=== PATIENT | female | born 1940 | race African-American/Black ===

== ENCOUNTER 2024-07-10 12:11 | Observation (INO) ==
--- NOTE | 2024-07-10 12:27 | Emergency Department Note ---
HPI - General Adult General Chief complaint: General Complaint Stated complaint: HIGH BLOOD PRESSURE Time Seen by Provider: 07/10/24 12:17 Source: patient Mode of arrival: walk-in Limitations: no limitations History of Present Illness HPI narrative: This is a 84 year old female patient that presents to the ER with c/o her SBP around 224 over DBP 90 at home and was told to come here for evaluation. Patient has a hx of HTN. Patient denies any chest pain, SOB, back pain, abdominal pain, numbness, tingling, weakness or N/V/D. Patient states she took her BP medications this morning Onset (ago): hour(s) (2) Associated symptoms: Reports denies other symptoms Related Data Allergies Allergy/AdvReac Type Severity Reaction Status Date / Time No Known Drug Allergies Allergy Verified 07/10/24 12:22 Review of Systems Status of ROS 10 or more systems reviewed and unremark able except as noted in history and below Constitutional Denies: fever, chills, change in weight, fatigue or malaise Eyes Denies: change in vision, blurry vision, blind spots or light sensitivity Ears, nose, mouth, and throat Denies: throat pain, neck pain, throat swelling, difficulty swallowing, hoarseness or mouth pain Cardiovascular Denies: chest pain, palpitations, edema or swelling of feet/ankles Respiratory Denies: shortness of breath, cough, wheezing, stridor, pain on inspiration, change in phlegm color or coughing up blood Gastrointestinal Denies: abdominal pain, nausea, vomiting, coffee grounds in vomit, heartburn or diarrhea Genitourinary Denies: painful urination, urinary frequency, urinary urgency, urinary incontinence, blood in urine or difficulty voiding Musculoskeletal Denies: back pain, neck pain, extremity pain, extremity swelling, joint pain or limited range of motion Integumentary/Breast Denies: rash, itching, redness, skin pain, skin tenderness, skin swelling, sores or new lesion Neurological Denies: headache, numbness in extremities, weakness in extremities, lack of coordination, dizziness, vertigo, confusion, behavioral changes or slurred speech Psychiatric Denies: anxiety, mood swings, panic attacks, change in sleep pattern or hopelessness Endocrine Denies: excessive urination, excessive thirst, fatigue, cold intolerance or excessive sweating Hematologic/Lymphatic Denies: easy bruising, easy bleeding or enlarged lymph nodes Allergic/Immunologic Denies: hives, throat swelling, tongue swelling, facial sw elling, wheezing or itchy eyes [facility] Social History Smoking status: former smoker Within the past year, how often did you have a drink containing alcohol: never Score interpretation: A score less than 3 is consistent with normal alcohol consumption. Non-prescribed substance use: denies use Exam Constitutional: normal general appearance and no apparent distress Vital Signs - 24 hr 07/10/24 12:21 Temperature 98.1 F Pulse Rate 46 L Respiratory Rate 18 Blood Pressure 179/64 HENMT: normocephalic, head/scalp atraumatic, hearing grossly normal bilaterally, external ears normal, nasal mucous membranes normal, external nose normal, oral mucous membranes normal and oropharynx normal Eyes: PERRL, EOMs intact bilaterally, conjunctivae normal and no scleral icterus Neck/C-Spine: visual inspection normal and trachea midline Lymph: no lymphadenopathy noted Chest: inspection of chest normal Respiratory: breath sounds equal bilaterally, normal respiratory effort, clear to auscultation bilaterally, no wheezes, no rales, no retractions and no use of accessory muscles Cardiovascular: normal heart rate noted, regular rhythm noted, no gallop, no rub, no murmur, no JVD, no clicks, peripheral pulses 2+ throughout and no additional abnormal heart sounds Gastrointestinal: abdomen normal to inspection, abdomen soft to palpation, nontender to palpation, nontender to percussion, nondistended, normoactive bowel sounds, no hepatosplenomegaly, no masses, no pulsatile mass, no ascites and no hernia Genitourinary: no CVA tenderness Back/Pelvis: spine normal to inspection Extremities: normal to inspection, normal to palpation, no tenderness, full ROM, no joint enlargement and no deformity Neurology: selling underwriter II-XII intact, no movement abnormality noted, no focal motor deficit noted, no sensory deficits noted, gait normal, speech normal, coordination normal, no pronator drift noted, no fasciculations noted and GCS normal Psychiatry: mental status grossly normal, oriented x3, thought process normal, cooperative, affect normal, psychomotor activity normal and memory normal Skin: skin color normal Course Course Hospital Course: 1314:Due to low HR and ongoing HTN, will admit patient to the floor for further evaluation and treatment. No s/s of acute distress noted Reevaluation(s) Reevaluation #1: 1341: During patients admission will hold her beta tosha and adjust her BP medications to see if her HR will come up and we get better BP control for patient. Vital Signs Vital signs: Vital Signs Temperature 98.1 F 07/10/24 12:21 Pulse Rate 46 L 07/10/24 12:21 Respiratory Rate 18 07/10/24 12:21 Blood Pressure 179/64 07/10/24 12:21 Temperature 98.1 F 07/10/24 12:21 Pulse Rate 46 L 07/10/24 12:21 Respiratory Rate 18 07/10/24 12:21 Blood Pressure 179/64 07/10/24 12:21 Medical Decision Making Differential Diagnosis Differential Diagnosis: viral illness Medical Records Medical records reviewed: Yes I reviewed the patient's medical records Lab Data Lab results reviewed: Yes I reviewed the patient's lab results Labs: Lab Results 07/10/24 Range/Units 12:45 WBC 10.1 H (4.3-9.3) K/uL RBC 4.0 (4.00-5.50) M/uL Hgb 11.7 L (12.5-15.8) gm/dL Hct 35.7 L (35.9-46.7) % MCV 90.1 (81.0-93.7) fl MCH 29.5 (27.6-32.2) pg MCHC 32.7 L (33.1-35.3) g/dl RDW 14.7 H (11.4-14.2) % Plt Count 352 (152-353) K/uL MPV 7.3 (6.9-10.8) fl Gran % 79.8 H (47.8-71.3) % Lymph % (Auto) 15.2 L (20.0-43.0) % [place] % (Auto) 3.7 (3.6-9.8) % Eos % (Auto) 0.6 (0.4-2.8) % Baso % (Auto) 0.7 (0.1-0.85) Lymph # (Auto) 1.5 (1.1-3.1) [place] # (Auto) 0.4 L (1.1-3.1) Eos # (Auto) 0.1 (0.0-0.2) Baso # (Auto) 0.1 (0.0-0.1) Absolute Gran (auto) 8.0 H (2.3-6.0) Sodium 143 (136-145) mmol/L Potassium 3.7 (3.6-5.2) mmol/L Chloride 106.0 (98-107) mmol/L Carbon Dioxide 30 (21-32) mmol/L Anion Gap 7.0 (4-14) mEq/L BUN 18 (7-18) mg/dL Creatinine 1.0 (0.6-1.3) mg/dL Estimated GFR 55.6 (>59.9) Glucose 140 H (70-110) mg/dL Calcium 9.0 (8.5-10.1) mg/dL Total Bilirubin 0.55 (0.0-1.0) mg/dL AST 13 L (15-37) U/L ALT 10 L (30-65) U/L Alkaline Phosphatase 75 (50-136) U/L Troponin I High Sens 10.60 (4.0-60.4) ng/L Total Protein 6.5 (6.4-8.2) g/dL Albumin 3.1 L (3.4-5.0) g/dL Urine Color Ana (STRAW/YELL.) Urine Appearance Hazy (CLEAR) Ur Specific [place] 1.030 (1.001-1.035) Urine Protein 1+ (NEGATIVE) Urine Glucose (UA) Normal (NORMAL) Urine Ketones Negative (NEGATIVE) Urine Occult Blood Negative (NEG - TRACE) Urine Nitrite Negative (NEGATIVE) Urine Bilirubin 1+ (NEGATIVE) Urine Urobilinogen Normal (NORMAL) Ur Leukocyte Esterase Negative (NEGATIVE) Fluid pH 6.0 (5 - 9) Imaging Data Chest x-ray: Attestation: I have reviewed the pertinent imaging results. ECG Data Attestation: I have reviewed the pertinent ECG results. Discharge Plan Discharge Patient Disposition: Admitted As Observation Condition: Stable Clinical Impression: Bradycardia, Benign essential HTN Time of Disposition: 13:16
[2024-07-10 12:50] LABS: Basophils #(Absolute) Auto 0.1 (0.0-0.1); Basophils%(Percent) Auto 0.7 (0.1-0.85); Eosinophils#(Absolute)Auto 0.1 (0.0-0.2); Eosinophils%(Percent) Auto 0.6 % (0.4-2.8); Granulocytes % - Auto 79.8 % (47.8-71.3); Hematocrit 35.7 % (35.9-46.7); Mean Corpuscular Volume 90.1 fl (81.0-93.7); Monocytes #(Absolute)- Auto 0.4 (1.1-3.1); Monocytes %(Percent)- Auto 3.7 % (3.6-9.8); Platelet Count 352 K/uL (152-353); White Blood Count 10.1 K/uL (4.3-9.3)
[2024-07-10 13:05] LABS: Potassium 3.7 mmol/L (3.6-5.2)
[2024-07-10 13:12] LABS: Urine Color AMBER (STRAW/YELL.)
[2024-07-10 13:13] LABS: Urine Appearance HAZY (CLEAR); Urine Blood NEGATIVE (NEG - TRACE); Urine Urobilinogen Normal (NORMAL)
[2024-07-10] MEDS ORDERED: bisacodyL 10 MG SUPP.RECT PR PRN (14:20)
[2024-07-10] MEDS: ACETAMINOPHEN 500 MG TABLET PO PRN (18:40)
[2024-07-11 05:34] LABS: Basophils #(Absolute) Auto 0.1 (0.0-0.1); Basophils%(Percent) Auto 0.6 (0.1-0.85); Eosinophils#(Absolute)Auto 0.1 (0.0-0.2); Eosinophils%(Percent) Auto 1.5 % (0.4-2.8); Granulocytes % - Auto 67.8 % (47.8-71.3); Granulocytes#(Absolute)- Auto 6.7 (2.3-6.0); Hematocrit 32.8 % (35.9-46.7); Mean Corpuscular Volume 89.5 fl (81.0-93.7); Monocytes #(Absolute)- Auto 0.6 (1.1-3.1); Monocytes %(Percent)- Auto 6.2 % (3.6-9.8); Platelet Count 317 K/uL (152-353); White Blood Count 9.9 K/uL (4.3-9.3)
[2024-07-11 06:09] LABS: Potassium 3.5 mmol/L (3.6-5.2)
[2024-07-11] MEDS: HYDRALAZINE HCL 20 MG/ML VIAL IVP ONE (11:01)
[2024-07-11] MEDS: AMLODIPINE BESYLATE 5 MG TABLET PO SCH (11:02)
[2024-07-11] MEDS: LOSARTAN POTASSIUM 50 MG TABLET PO SCH (11:03)
--- NOTE | 2024-07-11 12:17 | History & Physical Report ---
H&P: HPI History of Present Illness Chief complaint: BRADYCARDIA,HTN Narrative: This is a 84 year old female patient that presented to the ER on yesterday (07/10/24) with c/o her SBP around 224 over DBP 90 at home and was told to come here for evaluation. Patient denied any chest pain, SOB, back pain, abdominal pain, numbness, tingling, weakness or N/V/D. Her known past medical history includes hypertension, hyperlipidemia, and dementia. Her ER eval revealed continued bradycardia and hypertension. She was admitted for further evaluation and treatment. Review of Systems Status of ROS 10 or more systems reviewed and unremark able except as noted in history and below Constitutional Denies: fever, chills, change in weight, fatigue or malaise Eyes Denies: change in vision, blurry vision, blind spots or light sensitivity Ears, nose, mouth, and throat Denies: throat pain, neck pain, throat swelling, difficulty swallowing, hoarseness, mouth pain or vertigo Cardiovascular Denies: chest pain, palpitations, edema, swelling of feet/ankles or shortness of breath with exertion Respiratory Denies: shortness of breath, cough, wheezing, stridor, pain on inspiration, change in phlegm color or coughing up blood Gastrointestinal Denies: abdominal pain, nausea, vomiting, coffee grounds in vomit, heartburn, diarrhea or difficulty swallowing Genitourinary Denies: painful urination, urinary frequency, urinary urgency, urinary incontinence, blood in urine or difficulty voiding Musculoskeletal Denies: back pain, neck pain, extremity pain, extremity swelling, joint pain or limited range of motion Integumentary/Breast Denies: rash, itching, redness, skin pain, skin tenderness, skin swelling, sores or new lesion Neurological Denies: headache, numbness in extremities, weakness in extremities, lack of coordination, dizziness, vertigo, confusion, behavioral changes or slurred speech Psychiatric Denies: anxiety, mood swings, panic attacks, change in sleep pattern or hopelessness Endocrine Denies: excessive urination, excessive thirst, fatigue, cold intolerance or excessive sweating Hematologic/Lymphatic Denies: easy bruising, easy bleeding or enlarged lymph nodes Allergic/Immunologic Denies: hives, throat swelling, tongue swelling, facial swelling, wheezing or itchy eyes [facility] Medical History (Updated 07/11/24 @ 15:11 by Marti Velasquez DO) Dementia Mixed hyperlipidemia Hypertension Social History Smoking status: former smoker Within the past year, how often did you have a drink containing alcohol: never Score interpretation: A score less than 3 is consistent with normal alcohol consumption. Non-prescribed substance use: denies use Problems where you live: no known problems Highest level of school completed/degree received: high school Meds Home Medications and Allergies Home Medications Medication Instructions Recorded Confirmed Type donepezil 5 mg tablet 5 mg PO BEDTIME 07/11/24 07/11/24 History gabapentin 100 mg capsule 100 mg PO QID 07/11/24 07/11/24 History meloxicam 7.5 mg tablet 7.5 mg PO DAILY 07/11/24 07/11/24 History metoprolol tartrate 50 mg tablet 50 mg PO BID 07/11/24 07/11/24 History pravastatin 20 mg tablet 20 mg PO DAILY 07/11/24 07/11/24 History tramadol 50 mg tablet 50 mg PO BID PRN pain 07/11/24 07/11/24 History Allergies Allergy/AdvReac Type Severity Reaction Status Date / Time No Known Drug Allergies Allergy Verified 07/10/24 12:22 Exam Constitutional: normal general appearance, no apparent distress, average body habitus, limitations noted (physical limitations) and alert Vital Signs - 24 hr 07/10/24 12:21 07/10/24 13:05 07/10/24 13:31 Temperature 98.1 F Pulse Rate 46 L 42 L 41 L Pulse Rate [Right Radial] Respiratory Rate 18 16 18 Blood Pressure 179/64 182/73 161/57 Blood Pressure [Ri ght Arm] Pulse Oximetry 98 98 Oxygen Delivery Me thod Room Air Room Air 07/10/24 14:03 07/10/24 14:24 07/10/24 16:00 Temperature 98.1 F 98.1 F Pulse Rate 42 L Pulse Rate [Right Radial] 43 L 43 L Respiratory Rate 18 16 17 Blood Pressure 135/96 Blood Pressure [Ri ght Arm] 158/59 Pulse Oximetry 98 99 Oxygen Delivery Me thod Room Air Room Air 07/10/24 20:00 07/10/24 23:46 07/11/24 04:00 Temperature 98.2 F 97.9 F 98.1 F Pulse Rate Pulse Rate [Right Radial] 40 L 42 L 39 L Respiratory Rate 16 16 15 Blood Pressure Blood Pressure [Ri ght Arm] 153/51 143/53 110/60 Pulse Oximetry 99 100 98 Oxygen Delivery Me thod Room Air Room Air Room Air 07/11/24 08:00 Temperature 98.2 F Pulse Rate Pulse Rate [Right Radial] 51 L Respiratory Rate 16 Blood Pressure Blood Pressure [Ri ght Arm] 209/77 Pulse Oximetry Oxygen Delivery Me thod Room Air HENMT: normocephalic, head/scalp atraumatic, hearing grossly normal bilaterally, external ears normal, nasal mucous membranes normal, external nose normal, oral mucous membranes normal and oropharynx normal Eyes: PERRL, EOMs intact bilaterally, conjunctivae normal and no scleral icterus Neck/C-Spine: visual inspection normal and trachea midline Lymph: no lymphadenopathy noted Chest: inspection of chest normal Respiratory: breath sounds equal bilaterally, normal respiratory effort, clear to auscultation bilaterally, no wheezes, no rales, no retractions and no use of accessory muscles Cardiovascular: heart rate abnormal (bradycardic), regular rhythm noted, no gallop, no rub, no murmur, no JVD, no clicks, peripheral pulses 2+ throughout and no additional abnormal heart sounds Gastrointestinal: abdomen normal to inspection, abdomen soft to palpation, nontender to palpation, nontender to percussion, nondistended, normoactive bowel sounds, no masses, no pulsatile mass and no ascites Genitourinary: no CVA tenderness Back/Pelvis: spine normal to inspection and no lumbar spine tenderness Extremities: normal to inspection, normal to palpation, no tenderness, full ROM, no joint enlargement and no deformity Neurology: mirror inspector II-XII intact, no movement abnormality noted, no focal motor deficit noted, no sensory deficits noted, gait normal, speech normal, coordination normal, no pronator drift noted, no fasciculations noted and GCS normal Psychiatry: mental status grossly normal, oriented x3, thought process normal, cooperative, affect normal, psychomotor activity normal and memory normal Skin: skin color normal, no wounds, no jaundice, no petechiae and no mottling Assessment and Plan Assessment and Plan (1) Hypertension: Assessment and Plan: Hydralazine 5 mg slow IV push x 1 dose now Losartan 50 mg p.o. daily Amlodipine 2.5 mg p.o. daily Vital signs per protocol nurse monitoring continuous STOP metoprolol CBC, CMP daily EKG daily Serial cardiac enzymes and EKGs Qualifiers: Hypertension type: primary hypertension Qualified Code(s): I10 - Essential (primary) hypertension Code(s): I10 - Essential (primary) hypertension (2) Bradycardia: Assessment and Plan: nurse monitoring continuous Stop metoprolol Vital signs per protocol Daily EKG Losartan 50 mg p.o. daily Amlodipine 2.5 mg p.o. daily Vital signs per protocol nurse monitoring continuous STOP metoprolol CBC, CMP daily EKG daily Serial cardiac enzymes and EKGs Code(s): R00.1 - Bradycardia, unspecified (3) Junctional rhythm: Assessment and Plan: EKG reveals Junctional rhythm Bradycardiac and asymptomatic Stopping Metoprolol BP control with one time dose hydralazine 5 mg SIVP Losartan 50 mg po daily Amlodipine 2.5 mg po daily Continuous monitoring analyst Echocardiogram Cardiac consult Code(s): I49.8 - Other specified cardiac arrhythmias (4) Atrial fibrillation with slow ventricular response: Assessment and Plan: EKG performed at 1346 shows change Now A Fib with slow ventricular response Consulted with Dr. Prieto- Cardiology production superintendent at [employer] @[phone]- agrees with read and no complete heart block- patient stable at this time Starting Eliquis 2.5 mg po BID Code(s): I48.91 - Unspecified atrial fibrillation (5) Dementia: Assessment and Plan: Continue home medication of donepezil 5 mg p.o. at bedtime Qualifiers: Alzheimer's disease onset: unspecified onset Dementia behavioral or psychological symptom: without behavioral, psychotic, or mood disturbance or anxiety Dementia severity: mild Dementia type: Alzheimer's Qualified Code(s): G30.9 - Alzheimer's disease, unspecified; F02.A0 - Dementia in other diseases classified elsewhere, mild, without behavioral disturbance, psychotic disturbance, mood disturbance, and anxiety Code(s): F03.90 - Unspecified dementia, unspecified severity, without behavioral disturbance, psychotic disturbance, mood disturbance, and anxiety (6) Mixed hyperlipidemia: Assessment and Plan: Continue home medication of pravastatin 20 mg p.o. nightly Cardiac diet Code(s): E78.2 - Mixed hyperlipidemia (7) Chronic kidney disease: Assessment and Plan: Losartan 50 mg p.o. daily Amlodipine 2.5 mg p.o. daily Vital signs per protocol nurse monitoring continuous CBC, CMP daily Qualifiers: Chronic kidney disease stage: stage 2 (GFR 60-89) Qualified Code(s): N18.2 - Chronic kidney disease, stage 2 (mild) Code(s): N18.9 - Chronic kidney disease, unspecified Plan Admit for further eval and treatment to include but not limited to blood pressure control and continuous cardiac monitoring, Serial cardiac enzymes and EKGs, Cardiac consult, echocardiogram. Results Labs Labs: CBC WBC 9.9 K/uL (4.3-9.3) H 07/11/24 05:25 RBC 3.7 M/uL (4.00-5.50) L 07/11/24 05:25 Hgb 10.9 gm/dL (12.5-15.8) L 07/11/24 05:25 Hct 32.8 % (35.9-46.7) L 07/11/24 05:25 MCV 89.5 fl (81.0-93.7) 07/11/24 05:25 MCH 29.8 pg (27.6-32.2) 07/11/24 05:25 MCHC 33.2 g/dl (33.1-35.3) 07/11/24 05:25 RDW 14.9 % (11.4-14.2) H 07/11/24 05:25 Plt Count 317 K/uL (152-353) 07/11/24 05:25 MPV 7.5 fl (6.9-10.8) 07/11/24 05:25 Gran % 67.8 % (47.8-71.3) 07/11/24 05:25 Lymph % (Auto) 23.9 % (20.0-43.0) 07/11/24 05:25 [place] % (Auto) 6.2 % (3.6-9.8) 07/11/24 05:25 Eos % (Auto) 1.5 % (0.4-2.8) 07/11/24 05:25 Baso % (Auto) 0.6 (0.1-0.85) 07/11/24 05:25 Lymph # (Auto) 2.4 (1.1-3.1) 07/11/24 05:25 [place] # (Auto) 0.6 (1.1-3.1) L 07/11/24 05:25 Eos # (Auto) 0.1 (0.0-0.2) 07/11/24 05:25 Baso # (Auto) 0.1 (0.0-0.1) 07/11/24 05:25 Absolute Gran (auto) 6.7 (2.3-6.0) H 07/11/24 05:25 BMP Sodium 143 mmol/L (136-145) 07/11/24 05:25 Potassium 3.5 mmol/L (3.6-5.2) L 07/11/24 05:25 Chloride 108.0 mmol/L (98-107) H 07/11/24 05:25 Carbon Dioxide 30 mmol/L (21-32) 07/11/24 05:25 Anion Gap 5.0 mEq/L (4-14) 07/11/24 05:25 BUN 19 mg/dL (7-18) H 07/11/24 05:25 Creatinine 1.0 mg/dL (0.6-1.3) 07/11/24 05:25 Estimated GFR 55.6 (>59.9) 07/11/24 05:25 Glucose 87 mg/dL (70-110) 07/11/24 05:25 Calcium 8.7 mg/dL (8.5-10.1) 07/11/24 05:25 Total Bilirubin 0.42 mg/dL (0.0-1.0) 07/11/24 05:25 AST 15 U/L (15-37) 07/11/24 05:25 ALT 11 U/L (30-65) L 07/11/24 05:25 Alkaline Phosphatase 65 U/L (50-136) 07/11/24 05:25 Total Protein 5.8 g/dL (6.4-8.2) L 07/11/24 05:25 Albumin 2.7 g/dL (3.4-5.0) L 07/11/24 05:25 Cardiac Enzymes Troponin I High Sens 10.60 ng/L (4.0-60.4) 07/10/24 12:45 Liver Function Total Bilirubin 0.42 mg/dL (0.0-1.0) 07/11/24 05:25 AST 15 U/L (15-37) 07/11/24 05:25 ALT 11 U/L (30-65) L 07/11/24 05:25 Alkaline Phosphatase 65 U/L (50-136) 07/11/24 05:25 Total Protein 5.8 g/dL (6.4-8.2) L 07/11/24 05:25 Albumin 2.7 g/dL (3.4-5.0) L 07/11/24 05:25 Urine Urine Color Ana (STRAW/YELL.) 07/10/24 12:45 Urine Appearance Hazy (CLEAR) 07/10/24 12:45 Ur Specific [place] 1.030 (1.001-1.035) 07/10/24 12:45 Urine Protein 1+ (NEGATIVE) 07/10/24 12:45 Urine Glucose (UA) Normal (NORMAL) 07/10/24 12:45 Urine Ketones Negative (NEGATIVE) 07/10/24 12:45 Urine Occult Blood Negative (NEG - TRACE) 07/10/24 12:45 Urine Nitrite Negative (NEGATIVE) 07/10/24 12:45 Urine Bilirubin 1+ (NEGATIVE) 07/10/24 12:45 Urine Urobilinogen Normal (NORMAL) 07/10/24 12:45 Ur Leukocyte Esterase Negative (NEGATIVE) 07/10/24 12:45 Pulse Oximetry SpO2 results: 98% RA Attestation: I have reviewed the pertinent pulse oximetry results. ECG Attestation: I have reviewed the pertinent ECG results. ECG interpretation date: 07/10/24 Interpretation: Junctional rhythm Bradycardia Imaging Imaging ordered: Chest x-ray Attestation: I have reviewed the pertinent imaging results. Radiologist's impression: EXAM: XR CHEST 1V HISTORY: painpain; COMPARISON: July 07, 2024 FINDINGS: The trachea is midline. The cardiac silhouette is mildly enlarged. The lungs are clear without focal infiltrate or effusion. The bony thorax is unremarkable. IMPRESSION: No acute cardiopulmonary disease. THIS IS AN ELECTRONICALLY VERIFIED FINAL REPORT 07/10/2024 1:14 PM - Electronically signed by Silas Murray MD
[2024-07-11] MEDS ORDERED: TRAMADOL HCL 50 MG TABLET PO PRN (12:39)
[2024-07-11] MEDS: GABAPENTIN 100 MG CAPSULE PO SCH (13:42)
[2024-07-11] MEDS: MELOXICAM 7.5 MG TABLET PO SCH (13:56)
[2024-07-11] MEDS: AMLODIPINE BESYLATE 5 MG TABLET PO ONE (17:08)
[2024-07-11] MEDS ORDERED: PRAVASTATIN 20 MG PO SCH (20:00)
[2024-07-12 05:17] LABS: Basophils%(Percent) Auto 0.3 (0.1-0.85); Eosinophils#(Absolute)Auto 0.2 (0.0-0.2); Eosinophils%(Percent) Auto 1.4 % (0.4-2.8); Granulocytes % - Auto 68.4 % (47.8-71.3); Granulocytes#(Absolute)- Auto 7.4 (2.3-6.0); Hematocrit 34.5 % (35.9-46.7); Mean Corpuscular Volume 89.2 fl (81.0-93.7); Monocytes #(Absolute)- Auto 0.6 (1.1-3.1); Monocytes %(Percent)- Auto 5.9 % (3.6-9.8); Platelet Count 329 K/uL (152-353); White Blood Count 10.9 K/uL (4.3-9.3)
[2024-07-12 05:33] LABS: Potassium 3.4 mmol/L (3.6-5.2)
[2024-07-12] MEDS: DONEPEZIL HCL 5 MG TABLET PO SCH (06:08)
[2024-07-12] MEDS: SIMVASTATIN 10 MG TABLET PO SCH (06:08)
[2024-07-12] MEDS: APIXABAN 2.5 MG TABLET PO SCH (06:08)
--- NOTE | 2024-07-12 07:26 | Progress Note ---
Progress Note: Subjective Subjective Interval history: Hospital course has remained uneventful. Patient has rested well through the night. Her blood pressure has responded to treatment and now 152/65. Heart rate continues from 40s- low 50s and patient cotninues to be asymptomatic. EKG Afib with slow ventricular response. [facility] [employer] at [facility] Dr. Prieto was consulted. She was started on Eliquis 2.5 mg po BID. Family would like her to see Dr. Henning in [facility] for [facility]iology. Exam Exam: Patient resting in SF position asleep. Arouses easily when name is called. Alert and oriented. Pleasantly communicative. X-ray in to take her down for CXR via wc. Constitutional: normal general appearance, no apparent distress, average body habitus, limitations noted (physical limitations) and alert Vital Signs - 24 hr 07/11/24 08:00 07/11/24 11:45 07/11/24 12:00 Temperature 98.2 F 98.6 F Pulse Rate [Right Radial] 51 L 45 L Respiratory Rate 16 16 Blood Pressure 138/57 Blood Pressure [Ri ght Arm] 209/77 138/57 Pulse Oximetry 99 Oxygen Delivery Me thod Room Air Room Air 07/11/24 16:00 07/11/24 17:08 07/11/24 19:38 Temperature 98.4 F 98.5 F Pulse Rate [Right Radial] 46 L 53 L Respiratory Rate 16 17 Blood Pressure 205/78 Blood Pressure [Ri ght Arm] 196/81 140/53 Pulse Oximetry 99 98 Oxygen Delivery Me thod Room Air Room Air 07/11/24 23:19 07/12/24 03:27 07/12/24 07:14 Temperature 97.7 F 97.9 F 97.6 F Pulse Rate [Right Radial] 47 L 53 L 43 L Respiratory Rate 16 18 16 Blood Pressure Blood Pressure [Ri ght Arm] 155/71 158/77 152/65 Pulse Oximetry 99 99 99 Oxygen Delivery Me thod Room Air Room Air Room Air HENMT: normocephalic, head/scalp atraumatic, hearing grossly normal bilaterally, external ears normal, nasal mucous membranes normal, external nose normal, oral mucous membranes normal and oropharynx normal Eyes: PERRL, EOMs intact bilaterally, conjunctivae normal and no scleral icterus Neck/C-Spine: visual inspection normal and trachea midline Lymph: no lymphadenopathy noted Chest: inspection of chest normal Respiratory: breath sounds equal bilaterally, normal respiratory effort, clear to auscultation bilaterally, no wheezes, no rales, no retractions and no use of accessory muscles Cardiovascular: heart rate abnormal (bradycardic), regular rhythm noted, no gallop, no rub, no murmur, no JVD, no clicks, peripheral pulses 2+ throughout and no additional abnormal heart sounds Gastrointestinal: abdomen normal to inspection, abdomen soft to palpation, nontender to palpation, nontender to percussion, nondistended, normoactive bowel sounds, no hepatosplenomegaly, no masses, no pulsatile mass, no ascites and no hernia Genitourinary: no CVA tenderness Back/Pelvis: spine normal to inspection and no lumbar spine tenderness Extremities: normal to inspection, normal to palpation, no tenderness, full ROM, no joint enlargement and no deformity Neurology: dermatology nurse practitioner II-XII intact, no movement abnormality noted, no focal motor deficit noted, no sensory deficits noted, gait normal, speech normal, coordination normal, no pronator drift noted, no fasciculations noted and GCS normal Psychiatry: mental status grossly normal, oriented x3, thought process normal, cooperative, affect normal, psychomotor activity normal and memory normal Skin: skin color normal, no wounds, no jaundice, no petechiae and no mottling Progress Note: Objective Labs Labs: CBC WBC 10.9 K/uL (4.3-9.3) H 07/12/24 05:10 RBC 3.9 M/uL (4.00-5.50) L 07/12/24 05:10 Hgb 11.6 gm/dL (12.5-15.8) L 07/12/24 05:10 Hct 34.5 % (35.9-46.7) L 07/12/24 05:10 MCV 89.2 fl (81.0-93.7) 07/12/24 05:10 MCH 29.9 pg (27.6-32.2) 07/12/24 05:10 MCHC 33.6 g/dl (33.1-35.3) 07/12/24 05:10 RDW 15.1 % (11.4-14.2) H 07/12/24 05:10 Plt Count 329 K/uL (152-353) 07/12/24 05:10 MPV 7.3 fl (6.9-10.8) 07/12/24 05:10 Gran % 68.4 % (47.8-71.3) 07/12/24 05:10 Lymph % (Auto) 24.0 % (20.0-43.0) 07/12/24 05:10 [place] % (Auto) 5.9 % (3.6-9.8) 07/12/24 05:10 Eos % (Auto) 1.4 % (0.4-2.8) 07/12/24 05:10 Baso % (Auto) 0.3 (0.1-0.85) 07/12/24 05:10 Lymph # (Auto) 2.6 (1.1-3.1) 07/12/24 05:10 [place] # (Auto) 0.6 (1.1-3.1) L 07/12/24 05:10 Eos # (Auto) 0.2 (0.0-0.2) 07/12/24 05:10 Baso # (Auto) 0.0 (0.0-0.1) 07/12/24 05:10 Absolute Gran (auto) 7.4 (2.3-6.0) H 07/12/24 05:10 BMP Sodium 144 mmol/L (136-145) 07/12/24 05:10 Potassium 3.4 mmol/L (3.6-5.2) L 07/12/24 05:10 Chloride 107.0 mmol/L (98-107) 07/12/24 05:10 Carbon Dioxide 31 mmol/L (21-32) 07/12/24 05:10 Anion Gap 6.0 mEq/L (4-14) 07/12/24 05:10 BUN 14 mg/dL (7-18) 07/12/24 05:10 Creatinine 0.8 mg/dL (0.6-1.3) 07/12/24 05:10 Estimated GFR 72.6 (>59.9) 07/12/24 05:10 Glucose 114 mg/dL (70-110) H 07/12/24 05:10 Calcium 8.8 mg/dL (8.5-10.1) 07/12/24 05:10 Total Bilirubin 0.44 mg/dL (0.0-1.0) 07/12/24 05:10 AST 16 U/L (15-37) 07/12/24 05:10 ALT 9 U/L (30-65) L 07/12/24 05:10 Alkaline Phosphatase 72 U/L (50-136) 07/12/24 05:10 Total Protein 6.3 g/dL (6.4-8.2) L 07/12/24 05:10 Albumin 2.9 g/dL (3.4-5.0) L 07/12/24 05:10 Cardiac Enzymes Troponin I High Sens 10.60 ng/L (4.0-60.4) 07/10/24 12:45 Liver Function Total Bilirubin 0.44 mg/dL (0.0-1.0) 07/12/24 05:10 AST 16 U/L (15-37) 07/12/24 05:10 ALT 9 U/L (30-65) L 07/12/24 05:10 Alkaline Phosphatase 72 U/L (50-136) 07/12/24 05:10 Total Protein 6.3 g/dL (6.4-8.2) L 07/12/24 05:10 Albumin 2.9 g/dL (3.4-5.0) L 07/12/24 05:10 Urine Urine Color Ana (STRAW/YELL.) 07/10/24 12:45 Urine Appearance Hazy (CLEAR) 07/10/24 12:45 Ur Specific [place] 1.030 (1.001-1.035) 07/10/24 12:45 Urine Protein 1+ (NEGATIVE) 07/10/24 12:45 Urine Glucose (UA) Normal (NORMAL) 07/10/24 12:45 Urine Ketones Negative (NEGATIVE) 07/10/24 12:45 Urine Occult Blood Negative (NEG - TRACE) 07/10/24 12:45 Urine Nitrite Negative (NEGATIVE) 07/10/24 12:45 Urine Bilirubin 1+ (NEGATIVE) 07/10/24 12:45 Urine Urobilinogen Normal (NORMAL) 07/10/24 12:45 Ur Leukocyte Esterase Negative (NEGATIVE) 07/10/24 12:45 Pulse Oximetry SpO2 results: 99% RA Attestation: I have reviewed the pertinent pulse oximetry results. ECG Attestation: I have reviewed the pertinent ECG results. ECG interpretation date: 07/12/24 ECG interpretation time: 05:59 Prior ECG tracings: available for review Interpretation: Rate 48 Afib with slow ventricular response prolonged QT interval Progress Note: A&P Assessment and Plan (1) Hypertension: Assessment and Plan: Losartan 50 mg p.o. daily Amlodipine 5 mg p.o. daily Vital signs per protocol telemetry monitor continuous STOP metoprolol CBC, CMP daily EKG daily Cardiac CRP Qualifiers: Hypertension type: primary hypertension Qualified Code(s): I10 - Essential (primary) hypertension (2) Bradycardia: Assessment and Plan: telemetry monitor continuous Losartan 50 mg p.o. daily Amlodipine 5 mg p.o. daily Vital signs per protocol telemetry monitor continuous STOP metoprolol CBC, CMP daily EKG daily Cardiac CRP (3) Junctional rhythm: Assessment and Plan: EKG reveals Junctional rhythm Bradycardiac and asymptomatic Losartan 50 mg p.o. daily Amlodipine 5 mg p.o. daily Vital signs per protocol telemetry monitor continuous STOP metoprolol CBC, CMP daily EKG daily Cardiac CRP Echocardiogram Cardiac consult (4) Atrial fibrillation with slow ventricular response: Assessment and Plan: EKG performed 07/11/24 at 1346 shows change Now A Fib with slow ventricular response Consulted with Dr. Prieto- Cardiology ironmolder at [facility] @[id number]- agrees with read and no complete heart block- patient stable at this time Starting Eliquis 2.5 mg po BID Cardiac CRP (5) Dementia: Assessment and Plan: Continue home medication of donepezil 5 mg p.o. at bedtime Qualifiers: Alzheimer's disease onset: unspecified onset Dementia behavioral or psychological symptom: without behavioral, psychotic, or mood disturbance or anxiety Dementia severity: mild Dementia type: Alzheimer's Qualified Code(s): G30.9 - Alzheimer's disease, unspecified; F02.A0 - Dementia in other diseases classified elsewhere, mild, without behavioral disturbance, psychotic disturbance, mood disturbance, and anxiety (6) Mixed hyperlipidemia: Assessment and Plan: Continue home medication of pravastatin 20 mg p.o. nightly Cardiac diet Cardiac CRP (7) Chronic kidney disease: Assessment and Plan: Losartan 50 mg p.o. daily Amlodipine 5 mg p.o. daily Vital signs per protocol telemetry monitor continuous CBC, CMP daily Monitor intake and output. This mornings eGFR improved and at 72 microalbumin- urine Qualifiers: Chronic kidney disease stage: stage 2 (GFR 60-89) Qualified Code(s): N18.2 - Chronic kidney disease, stage 2 (mild) Plan Continue evaluation and treatment including blood pressure control and continuous cardiac monitoring, Serial cardiac enzymes and EKGs, Cardiac consult, echocardiogram. Fall Risk Details Marin Fall Scale Risk Level: Moderate Fall Risk Current Medications: Current Medications Acetaminophen (Acetaminophen 500 Mg Tablet) 500 mg PO Q6H PRN PRN Reason: MILD PAIN SCALE 1-4 Last Admin: 07/11/24 03:53 Dose: 500 mg Amlodipine Besylate (Amlodipine Besylate 5 Mg Tablet) 5 mg PO DAILY [facility] Apixaban (Apixaban 2.5 Mg Tablet) 2.5 mg PO BID [facility] Last Admin: 07/12/24 06:08 Dose: Not Given Bisacodyl (Bisacodyl 10 Mg Supp.Rect) 10 mg [place] DAILY PRN PRN Reason: Constipation Donepezil HCl (Donepezil Hcl 5 Mg Tablet) 5 mg PO BEDTIME [facility] Last Admin: 07/12/24 06:08 Dose: Not Given Gabapentin (Gabapentin 100 Mg Capsule) 100 mg PO QID [facility] Last Admin: 07/12/24 06:08 Dose: Not Given Losartan Potassium (Losartan Potassium 50 Mg Tablet) 50 mg PO DAILY [facility] Last Admin: 07/11/24 11:03 Dose: 50 mg Simvastatin (Simvastatin 10 Mg Tablet) 10 mg PO BEDTIME [facility] Last Admin: 07/12/24 06:08 Dose: Not Given Tramadol HCl (Tramadol Hcl 50 Mg Tablet) 50 mg PO BID PRN PRN Reason: pain Time Spent With Patient Time: Total time spent is greater than 50% in coordination of care (as documented) at patient's floor/unit and/or counseling patient: Time with patient: 25 - 35 minutes
[2024-07-12] MEDS: AMLODIPINE BESYLATE 5 MG TABLET PO SCH (08:40)
[2024-07-12 08:58] LABS: Urine Appearance CLEAR (CLEAR); Urine Blood NEGATIVE (NEG - TRACE); Urine Color PALE YELLOW (STRAW/YELL.)
[2024-07-12 08:59] LABS: PH BODY FLUID EXCP BLOOD 7.5 (5 - 9); Urine Urobilinogen Normal (NORMAL)
[2024-07-13 06:50] LABS: Basophils #(Absolute) Auto 0.1 (0.0-0.1); Basophils%(Percent) Auto 0.7 (0.1-0.85); Eosinophils#(Absolute)Auto 0.2 (0.0-0.2); Granulocytes % - Auto 69.2 % (47.8-71.3); Hematocrit 38.6 % (35.9-46.7); Mean Corpuscular Volume 90.9 fl (81.0-93.7); Monocytes #(Absolute)- Auto 0.5 (1.1-3.1); Monocytes %(Percent)- Auto 4.9 % (3.6-9.8); Platelet Count 358 K/uL (152-353); White Blood Count 10.2 K/uL (4.3-9.3)
[2024-07-13 07:19] LABS: Potassium 3.8 mmol/L (3.6-5.2)
[2024-07-13 07:54] VITALS: BP 139/82; PULSE 52; RESP 18; TEMP 98.1
--- NOTE | 2024-07-13 13:07 | Discharge Summary ---
DS: Providers Provider Date of admission: 07/10/24 13:24 Primary care physician: Glen Morgan MD Admitting clinician: Radha Pierce Attending physician on admission: Sis Foreman Attending physician on discharge: Marti Velasquez Discharging clinician: Marti Velasquez Anticipated date of discharge: 07/13/24 DS: Diagnosis Discharge Diagnosis (1) Bradycardia: (2) Atrial fibrillation with slow ventricular response: (3) Junctional rhythm: (4) Chronic kidney disease: Qualifiers: Chronic kidney disease stage: stage 2 (GFR 60-89) Qualified Code(s): N18.2 - Chronic kidney disease, stage 2 (mild) (5) Dementia: Qualifiers: Alzheimer's disease onset: unspecified onset Dementia behavioral or psychological symptom: without behavioral, psychotic, or mood disturbance or anxiety Dementia severity: mild Dementia type: Alzheimer's Qualified Code(s): G30.9 - Alzheimer's disease, unspecified; F02.A0 - Dementia in other diseases classified elsewhere, mild, without behavioral disturbance, psychotic disturbance, mood disturbance, and anxiety (6) Hypertension: Qualifiers: Hypertension type: primary hypertension Qualified Code(s): I10 - Essential (primary) hypertension (7) Mixed hyperlipidemia: (8) Electrolyte abnormality: Plan Acetaminophen 500 mg PO Q6H PRN Bisacodyl 10 mg NM Daily PRN Losartan Potassium 50 mg PO Daily Donepezil Hcl 5 mg PO Bedtime Gabapentin 100 mg PO QID Tramadol Hcl 50 mg PO BID PRN Simvastatin 10 mg PO Bedtime Apixaban 2.5 PO BID Amlodipine Besylate 5 mg PO Daily cardiac monitoring and cautious hydration and electrolyte correction per protocol Acute symptoms and problems have resolved and patient is medically ready to discharge home with a follow up appointment not just to PCP but [facility] [employer] (Dr. Echeverria) as well. DS: Summary Hospital Course Hospital Course: This is a 84 year old female patient that presented to the ER on 07/10/24 with c/o her SBP around 224 over DBP 90 at home and was told to come here for evaluation. Patient denied any chest pain, SOB, back pain, abdominal pain, numbness, tingling, weakness or N/V/D. Her known past medical history includes hypertension, hyperlipidemia, and dementia. Her ER eval revealed continued bradycardia and hypertension. She was admitted to med/surg for further evaluation and treatment. Patient was placed on a cardiac cath lab radiology technologist when she arrived to the floor, EKG was obtained in ER and repeated on the floor on day 2 of hospital stay. Changes in EKG were noted since admission, chief safety officer Dr Prieto prep person for [facility] in [place] states he agrees not a Complete heart block but with the patients changes he would continue to monitor patient for another 24 hours since increased confusion and EKG changing. Patient developed Atrial flutter whil in the hospital as well and it resolved spontaneously and patient tolerated the Eliquis starting at half dose due to age and dementia and renal impairment. Cardiology of patient's choosing was contacted and unavailable so Dr Echeverria will be used out patient but sought guidance and transfer to [place] rather than [place]. Patient is able to discharge home with an follow up appointment with Dr. Echeverria (chief safety officer) on 07/14, for hospitalization due to hypertension, rhythm changes, and patient remained bradycardic although with stopping the betablocker patient finally was in the 50's early am of discharge until she was discharged later in the day per the cardiac monitoring. Blood pressure and heart rate were stabilized by medication removal intervention; acute symptoms and problems have resolved at this time and patient denies any fatigue, however, must be closely monitored between discharge and cardiology appointment by the family for fears patient will miss take the blood thinner or a fall could detremental to her health and sister agrees to take patient to her home or she will stay with the patient at her home. Status at Discharge Functional status at discharge: independent ambulation Overall status at discharge: patient is progressing back to baseline Time Spent with Patient Time attestation: Total time spent providing and/or coordinating discharge services: Time spent: greater than 30 minutes Exam Exam: Patient in ramsey's position with family at bedside upon encounter for exam. Patient in a positive disposition, with occasional laughing and making jokes. Constitutional: normal general appearance, no apparent distress, average body habitus, limitations noted (physical limitations) and alert Vital Signs - 24 hr 07/12/24 16:00 07/12/24 20:00 07/12/24 23:52 Temperature 97.7 F 98.2 F 97.9 F Pulse Rate [Right Radial] 60 60 49 L Respiratory Rate 20 19 17 Blood Pressure [Ri ght Arm] 156/82 168/73 123/57 Pulse Oximetry 98 97 98 Oxygen Delivery Me thod Room Air Room Air Room Air 07/13/24 04:00 07/13/24 07:53 Temperature 98.2 F 98.1 F Pulse Rate [Right Radial] 48 L 52 L Respiratory Rate 16 18 Blood Pressure [Ri ght Arm] 122/71 139/82 Pulse Oximetry 100 99 Oxygen Delivery Mt thod Room Air Room Air HENMT: normocephalic, head/scalp atraumatic, hearing grossly normal bilaterally, external ears normal, nasal mucous membranes normal, external nose normal, oral mucous membranes normal and oropharynx normal Eyes: PERRL, EOMs intact bilaterally, conjunctivae normal and no scleral icterus Neck/C-Spine: visual inspection normal and trachea midline Lymph: no lymphadenopathy noted Chest: inspection of chest normal Respiratory: breath sounds equal bilaterally, normal respiratory effort, clear to auscultation bilaterally, no wheezes, no rales, no retractions and no use of accessory muscles Cardiovascular: normal heart rate noted, regular rhythm noted, no gallop, no rub, no murmur, no JVD, no clicks, peripheral pulses 2+ throughout and no additional abnormal heart sounds Gastrointestinal: abdomen normal to inspection, abdomen soft to palpation, nontender to palpation, nontender to percussion, nondistended, normoactive bowel sounds, no hepatosplenomegaly, no masses, no pulsatile mass, no ascites and no hernia Genitourinary: no CVA tenderness Back/Pelvis: spine normal to inspection and no lumbar spine tenderness Extremities: normal to inspection, normal to palpation, no tenderness, full ROM, no joint enlargement and no deformity Neurology: assurance services manager health care II-XII intact, no movement abnormality noted, no focal motor deficit noted, no sensory deficits noted, gait normal, speech normal, coordination normal, no pronator drift noted, no fasciculations noted and GCS normal Psychiatry: mental status grossly normal, oriented x3, thought process normal, cooperative, affect normal, psychomotor activity normal and memory normal Skin: skin color normal, no wounds, no jaundice, no petechiae and no mottling DS: Data Data Completed and Pending Labs on day of discharge: Labs from last 24 hours 07/13/24 06:40 WBC 10.2 H RBC 4.2 Hgb 12.6 Hct 38.6 MCV 90.9 MCH 29.7 MCHC 32.7 L RDW 15.4 H Plt Count 358 H MPV 7.3 Gran % 69.2 Lymph % (Auto) 23.2 [place] % (Auto) 4.9 Eos % (Auto) 2.0 Baso % (Auto) 0.7 Lymph # (Auto) 2.4 [place] # (Auto) 0.5 L Eos # (Auto) 0.2 Baso # (Auto) 0.1 Absolute Gran (auto) 7.0 H Sodium 145 Potassium 3.8 Chloride 107.0 Carbon Dioxide 29 Anion Gap 9.0 BUN 9 Creatinine 0.8 Estimated GFR 72.6 Glucose 87 Calcium 9.2 Total Bilirubin 0.36 AST 13 L ALT 10 L Alkaline Phosphatase 76 Troponin I High Sens 9.60 B-Natriuretic Peptide 174.0 H Total Protein 6.9 Albumin 3.3 L Imaging Chest x-ray: Radiologist's impression: XR CHEST 1V Date of Service: 07/10/24 HISTORY: painpain; COMPARISON: July 07, 2024 FINDINGS: The trachea is midline. The cardiac silhouette is mildly enlarged. The lungs are clear without focal infiltrate or effusion. The bony thorax is unremarkable. IMPRESSION: No acute cardiopulmonary disease. XR CHEST 2V Date of Service: 07/12/24 HISTORY: Bradycardia, hypertension- COMPARISON: X-ray 07/10/2024 FINDINGS: The trachea is midline. The cardiac silhouette is normal in size. There is a probable small hiatus hernia. Lungs appear clear. Lungs appear hyperinflated. No pneumothorax or pleural effusion is seen. No acute bony abnormality is seen. IMPRESSION: Hyperinflation of the lungs could be from asthma or emphysema. No evidence of CHF or pneumonia. Discharge Plan Discharge Disposition: Home, Self-Care Condition: Stable Discharge Medications: New amlodipine 5 mg Tablet 5 mg PO DAILY Qty: 30 0RF Eliquis 2.5 mg Tablet 2.5 mg PO BID Qty: 60 0RF losartan 50 mg Tablet 50 mg PO DAILY Qty: 30 0RF Continued donepezil 5 mg tablet 5 mg PO BEDTIME gabapentin 100 mg capsule 100 mg PO QID Patient Comments: TAKE 1 CAPSULE BY MOUTH 4 TIMES DAILY FOR 90 DAYS pravastatin 20 mg tablet 20 mg PO DAILY Patient Comments: TAKE 1 TABLET BY MOUTH ONCE DAILY FOR 90 DAYS tramadol 50 mg tablet 50 mg PO BID PRN (Reason: pain) Discontinued meloxicam 7.5 mg tablet 7.5 mg PO DAILY metoprolol tartrate 50 mg tablet 50 mg PO BID Discharge Orders: Discharge Order (Routine); Ordered 07/13/24 Ordered By: Marti Velasquez Activity: as per physical therapy Diet: low fat, low cholesterol Interventions: Discharge Assessment Last Done: 07/13/24 10:39 MED/SURG & ICU Observation Charge Sheet Last Done: 07/13/24 05:52 Patient Instructions: Chronic Hypertension (GEN), Bradycardia (GEN) Activity Restrictions/Additional Instructions: FOLLOW UP Dr Carroll this week Dr Echeverria Cardiology will see patient in [place] tomorrow at 11:15 am No driving and no staying alone secondary to dementia with confusion and visual hallucinations. Forms: Portal/Health Info Access Inst Follow-Ups: Donnie Echeverria DO [Referring] - 07/14/24 11:15 am Glen Morgan MD [Primary Care Provider] - 07/20/24 10:30 am (CARDIOLOGY APPOINTMENT WITH DR. Lisa ECHEVERRIA ON 07/14/2024 @ 11:15 IN [facility]) Discharge Date/Time: 07/13/24 11:38
== END 2024-07-13 11:38 | disposition home or self-care (01) ==
LOC: MS 12:11 → ED 12:11 → MS 14:04
PROVIDERS: ADMIT Family Medicine; ATTEND Family Medicine
DX: N18.2 Chronic kidney disease, stage 2 (mild); Z87.891 Personal history of nicotine dependence; F02.A0 Dementia in other diseases classified elsewhere, mild, without behavioral disturbance, psychotic disturbance, mood disturbance, and anxiety; R00.1 Bradycardia, unspecified; E87.8 Other disorders of electrolyte and fluid balance, not elsewhere classified; I48.91 Unspecified atrial fibrillation; I12.9 Hypertensive chronic kidney disease with stage 1 through stage 4 chronic kidney disease, or unspecified chronic kidney disease; E78.2 Mixed hyperlipidemia; G30.8 Other Alzheimer's disease